=== PATIENT | female | born 1950 ===

== ENCOUNTER → 2025-03-24 | Outpatient (CLI) | payer OTHER ==
[2025-03-24 20:58] LABS: Influenza A, PCR NEGATIVE (NEGATIVE); Influenza B, PCR NEGATIVE (NEGATIVE); Resp Syncytial Virus, PCR NEGATIVE (NEGATIVE); SARS-Cov-2 (COVID-19) PCR, MMC NEGATIVE (NEGATIVE)
[2025-03-25 14:18] LABS: Influenza A/2009-H1 Not Detected (NOT DETECT); SARS-Cov-2 (COVID-19), BioFire Not Detected (NOT DETECT)
== END | disposition home or self-care (01) ==
LOC: LAB 19:12 → LAB SHORT 19:12
PROVIDERS: Nurse Practitioner Family
DX: B34.0 Adenovirus infection, unspecified (principal); J06.9 Acute upper respiratory infection, unspecified
CPT/HCPCS: 0202U; 87637